=== PATIENT | female | born 1940 | race Caucasian/White ===

== ENCOUNTER 2016-06-25 07:46 | Day surgery (SDC) | payer OTHER ==
--- NOTE | 2016-06-25 12:25 | GI Report ---
REFERRING PHYSICIAN: Dr. Miguel Aguilar CHIP MIXING MACHINE OPERATOR: Dejuan Lugo MD PROCEDURE MEDICATION: Propofol as per anesthesia. INDICATIONS: This is a 76-year-old woman who has had colon cancer surgery back, I think, around 2001. Her last colonoscopy was 5 years ago. She denies any changes in her stools or blood in the stool. There is a strong family history of a brother with colon cancer. Patient has also had breast cancer. PROCEDURE PERFORMED: Colonoscopy. PROCEDURE: An Olympus pediatric colonoscope was advanced into the rectum. She has anastomosis in the rectum at about 8 cm. The colonoscope was slowly advanced all the way to the cecum. The appendiceal orifice and ileocecal valve looked normal. On slow withdrawal, the cecum, ascending colon, and transverse colon with no obvious intraluminal lesions noted. Descending colon is normal and is attached to the rectum. No obvious intraluminal lesions noted. There is a slight narrowing at the anastomosis but the scope easily passes. Patient tolerated the procedure well. FINDINGS: Anastomosis colorectal. The remaining colon looks normal. RECOMMENDATIONS: 1. Continue high-fiber diet. 2. Consider re-looking at her colon in 5 years, sooner if clinically indicated. cc: Dr. Miguel Aguilar [facility]
== END 2016-06-25 07:47 ==
LOC: OPSURG 07:46
PROVIDERS: ATTEND Internal Medicine Gastroenterology
DX: Z85.038 Personal history of other malignant neoplasm of large intestine (principal); Z85.3 Personal history of malignant neoplasm of breast; Z80.0 Family history of malignant neoplasm of digestive organs; Z98.0 Intestinal bypass and anastomosis status
CPT/HCPCS: J2704; J7120; 45378; S1016